=== PATIENT | male | born 1945 | race Caucasian/White ===

== ENCOUNTER 2018-12-04 16:33 | Outpatient (REF) | payer MEDICARE, SELFPAY ==
[2018-12-04 21:19] LABS: Anion Gap 6.2 mmol/L (3-11); BUN 10 mg/dL (7-18); CO2 34.8 mmol/L (21.0-32.0); CREATININE 0.86 mg/dL (0.70-1.30); Calcium 9.2 mg/dL (8.5-10.1); Chloride 101 mmol/L (98-107); Glucose 100 mg/dL (70-100); Potassium 4.3 mmol/L (3.5-5.1); Sodium 142 mmol/L (136-145)
== END 2018-12-04 16:53 ==
LOC: NCHCN 16:33
PROVIDERS: PCP Physician Assistant; Visit Provider Physician Assistant Medical
DX: I10 Essential (primary) hypertension (principal)
CPT/HCPCS: 80048

== ENCOUNTER 2019-01-14 15:24 | Outpatient (CLI) | payer MEDICARE, SELFPAY ==
--- NOTE | 2019-01-14 11:00 | DI.US_ITS ---
SYMPTOMS/DIAGNOSIS: LEG PAIN, BAKERS CYST, ? DVT, M79.605, M71.22 LEFT LOWER EXTREMITY ULTRASOUND: There is no evidence of deep venous thrombosis or superficial venous thrombosis. A small calvillo's cyst is identified measuring 1.6 x 0.8 x 2 cm. IMPRESSION: Small calvillo's cyst.
== END 2019-01-14 15:44 ==
PROVIDERS: PCP Physician Assistant; Visit Provider Physician Assistant Medical
DX: M79.605 Pain in left leg (principal); M71.22 Synovial cyst of popliteal space [Baker], left knee
CPT/HCPCS: 93971

== ENCOUNTER 2019-06-03 12:47 | Outpatient (REF) | payer MEDICARE, SELFPAY ==
[2019-06-03 18:55] LABS: Anion Gap 3.8 mmol/L (3-11); BUN 12 mg/dL (7-18); CO2 32.2 mmol/L (21.0-32.0); CREATININE 0.85 mg/dL (0.70-1.30); Calcium 8.7 mg/dL (8.5-10.1); Chloride 104 mmol/L (98-107); Glucose 112 mg/dL (70-100); Potassium 4.3 mmol/L (3.5-5.1); Sodium 140 mmol/L (136-145)
[2019-06-05 11:05] LABS: PSA, Diagnostic 71.9 ng/ml (0-6.5)
== END 2019-06-03 13:07 ==
LOC: NCHCN 12:47
PROVIDERS: PCP Physician Assistant; Visit Provider Nurse Practitioner Family
DX: R97.20 Elevated prostate specific antigen [PSA] (principal); R35.0 Frequency of micturition
CPT/HCPCS: 80048; 84153; 87086

== ENCOUNTER 2020-10-15 19:30 | Outpatient (REF) | payer MEDICARE, SELFPAY ==
[2020-10-15 20:16] LABS: ALT 75 U/L (16-63); AST 73 U/L (15-37); Albumin 3.8 g/dL (3.4-5.0); Alkaline Phosphatase 116 U/L (46-116); Anion Gap 8.1 mmol/L (3-11); BUN 13 mg/dL (7-18); Bilirubin, Total 1.2 mg/dL (0.2-1.0); CO2 30.9 mmol/L (21.0-32.0); Calcium 9.1 mg/dL (8.5-10.1); Chloride 101 mmol/L (98-107); Glucose 193 mg/dL (74-106); Potassium 4.1 mmol/L (3.5-5.1); Sodium 140 mmol/L (136-145); Total Protein 7.8 g/dL (6.4-8.2)
[2020-10-18 12:36] LABS: PSA, Diagnostic 114.7 ng/mL (0.0-6.5)
== END 2020-10-15 19:50 ==
LOC: NCHCN 19:30
PROVIDERS: PCP Physician Assistant; Visit Provider Physician Assistant
DX: I10 Essential (primary) hypertension (principal); R97.20 Elevated prostate specific antigen [PSA]; R35.0 Frequency of micturition
CPT/HCPCS: 80053; 84153; 87086